=== PATIENT | female | born 1955 | race Caucasian/White ===

== ENCOUNTER 2022-09-27 04:33 | Day surgery (SDC) | payer OTHER, MEDICARE ==
[2022-09-26 16:22] VITALS: BMI 19.5
[2022-09-27 12:22] VITALS: BP 116/65; PULSE 77; RESP 18; TEMP 98
== END 2022-09-27 12:35 | disposition home or self-care (01) ==
LOC: JASU-ENDO 04:33
PROVIDERS: ATTEND Internal Medicine Gastroenterology
PROC: 0DJD8ZZ Inspection of Lower Intestinal Tract, Via Natural or Artificial Opening Endoscopic (ICD-10-PCS; principal; 2022-09-27 11:00)
DX: Z12.11 Encounter for screening for malignant neoplasm of colon (principal); K63.89 Other specified diseases of intestine; K56.609 Unspecified intestinal obstruction, unspecified as to partial versus complete obstruction; K92.1 Melena; Z86.010 Personal history of colon polyps